=== PATIENT | female | born 1955 | race Caucasian/White ===

== ENCOUNTER → 2018-10-04 | Outpatient (CLI) | payer MEDICARE ==
[2018-10-04 10:57] VITALS: BP 155/71; PULSE 67; RESP 18; TEMP 98.1; BMI 22.3
--- NOTE | 2018-10-04 11:37 | P.HPOB ---
History of Present Illness H&P Date: 10/04/18 Chief Complaint: The patient is here for her routine gynecologic exam and mammogram. This is a 63-year-old with an LMP of 2006. The patient is without gynecologic complaints and denies any postmenopausal bleeding. Review of Systems Weight has been stable. She denies respiratory, cardiac and G.I. problems. She denies maltreatment or problems with falling. : she denies any significant problems with urinary leakage. Past Medical History Past Medical History: No Reported History Additional Past Medical History / Comment(s): History of Mnire's disease. Minimally elevated BUN. PAST EXPLOSIVE EXPERT HISTORY: She has no history of STDs. History of Any Multi-Drug Resistant Organisms: None Reported Past Surgical History: Appendectomy, Breast Surgery (Right breast biopsy 2009), Orthopedic Surgery (Knee surgery) Additional Past Surgical History / Comment(s): Colonoscopy 2008(2nd). Past Anesthesia/Blood Transfusion Reactions: No Reported Reaction Past Psychological History: No Psychological Hx Reported Smoking Status: Never smoker Past Alcohol Use History: Rare (One per year) Past Drug Use History: None Reported Additional History: She is . And has had a long-term boyfriend since about 2001. She is retired but teaches a water aerobics regularly. - Past Family History Mother Family Medical History: Cancer (Lung cancer) Father Family Medical History: Cancer (Melanoma) Sister(s) Family Medical History: Cancer (Breast cancer) Brother(s) Family Medical History: Cancer (Lymphoma) Medications and Allergies Home Medications Medication Instructions Recorded Confirmed Type No Known Home Medications 10/04/18 10/04/18 History Allergies Allergy/AdvReac Type Severity Reaction Status Date / Time No Known Allergies Allergy Verified 10/04/18 10:59 Exam Vital Signs Temp Pulse Resp BP Pulse Ox 10/04/18 10:46 98.1 F 67 18 155/71 98 Intake and Output 10/03/18 10/04/18 10/04/18 22:59 06:59 14:59 Other: Weight 53.524 kg Height 5'1", weight 118 pounds, BMI 22.3. Repeat blood pressure was 132/68. This is a well-developed well-nourished white female who is alert and oriented times 3 in no acute distress. HEENT: Within normal limits. NECK: Supple without mass or thyromegaly. CHEST AND LUNGS: Clear to auscultation. HEART: Regular rate and rhythm. BREASTS: Are without mass or discharge. There is a slight dimpled area with a scar consistent with the previous breast biopsy in the right breast at the 7 o' clock position. AXILLARY EXAM: Negative for adenopathy. BACK: Negative for CVA tenderness. ABDOMEN: Soft, nontender, without palpable masses. PELVIC EXAM: Normal external genitalia with mild to moderate atrophy. Cervix and vagina appear normal some mild to moderate atrophy. There is no unusual discharge. There is no evidence of prolapse. The uterus is midposition, nongravid size and nontender. There are no palpable adnexal masses or tenderness. RECTAL EXAM: rectovaginal exam is negative for mass or tenderness and is negative for occult blood. EXTREMITIES: Nontender. IMPRESSION: 1. 63-year-old menopausal female with normal gynecologic exam. 2. Elevated blood pressure on initial check with improvement upon repeating. 3. History of elevated BUN. PLAN: 1. Pap smear was deferred since she had a normal one last year. We will plan on discontinuing Pap smears since she is not had any problems with Pap smears and we have documented adequate screening with 3 or more negative Pap smears over the last 10 years. 2. Self breast awareness was discussed with the patient. 3. Screening mammogram will be done today. 4. Her blood pressure elevation was discussed. She will do regular blood pressure checks on her own and follow-up with Dr. Summers for blood pressure elevations. 5. I have asked the patient to follow-up with Dr. Summers regarding her elevated BUN which was 24 last year. She states she will do this. 6. She is due for a screening colonoscopy. She states she will discuss this with Dr. Summers for a referral. 7. She did receive a flu shot this fall. 8.Osteoporosis prevention was discussed. I have stressed the importance of adequate calcium, vitamin D and regular exercise. Recommended amounts of calcium and vitamin D were also discussed. She had a normal bone density test on 06/28/14. We will plan on repeating this next year. 9. She will return in one year.
--- NOTE | 2018-10-11 15:02 | MM ---
Reason for exam: screening (asymptomatic). Last mammogram was performed 1 year and 2 months ago. History: Patient is postmenopausal and has history of high-risk lesion on a previous biopsy at age 54. Family history of breast cancer in aunt. Benign right breast needle localzation of the right breast, November 22, 2009. High risk right mammotome panel of the right breast, October 30, 2009. High risk right mammotome panel of the right breast, October 30, 2009. Benign stereotactic core biopsy of the left breast, June 08, 2003. 2 core biopsies of the left breast. MG 3D Screening Mammo W/Cad Bilateral CC and MLO view(s) were taken. Prior study comparison: July 27, 2017, bilateral MG 3d screening mammo w/cad. July 25, 2015, left breast MG 3d work up w/cad LT. The breast tissue is heterogeneously dense. This may lower the sensitivity of mammography. There are benign-appearing left breast calcifications. Bilateral post biopsy changes. No suspicious abnormality. No significant changes when compared with prior studies. ASSESSMENT: Benign, BI-RAD 2 RECOMMENDATION: Routine screening mammogram of both breasts in 1 year.
== END ==
LOC: WWCWWP 10:36
PROVIDERS: ATTEND Obstetrics & Gynecology
DX: Z12.31 Encounter for screening mammogram for malignant neoplasm of breast (principal)
CPT/HCPCS: 77063; 77067

== ENCOUNTER 2019-08-07 09:43 | Day surgery (SDC) | payer MEDICARE, OTHER ==
[2019-08-02 12:01] VITALS: BMI 21.4
[~2019-08-07 09:43] MED LIST: LACTATED RINGERS 1,000 ML IV SCH; LIDOCAINE 1% 20 ML VIAL (10MG/ML) FOR IV START INTRADERMA PRN
[2019-08-07 09:57] VITALS: TEMP 97.7
[2019-08-07] MEDS ORDERED: PROPOFOL 10 MG/ML 20 ML VIAL IV ONE (10:35)
--- NOTE | 2019-08-07 11:27 | P.PCN ---
Date of Procedure: 08/07/19 Description of Procedure: BRIEF HISTORY: Patient is a 64-year-old pleasant female scheduled for an elective colonoscopy as a part of screening for malignant neoplasm of the colon. Patient reports last colonoscopy approximately 10 years ago with the surgical service. No change in bowel habits, blood per rectum or abdominal pain. She does report family history of colon cancer in an uncle. PROCEDURE PERFORMED: Colonoscopy with polypectomy. PREOPERATIVE DIAGNOSIS: Screening for malignant neoplasm of the colon, last colonoscopy 10 years ago. ESTIMATED BLOOD LOSS: Minimal. IV sedation per Anesthesia. PROCEDURE: After informed consent was obtained, the patient, was brought into the endoscopy unit. IV sedation was administered by Anesthesia under continuous monitoring. Digital rectal examination was normal. Initially the Olympus CF-190 flexible video colonoscope was then inserted in the rectum, gradually advanced into the cecum without any difficulty. Careful examination was performed as the scope was gradually being withdrawn. Ileocecal valve and the appendiceal orifice were visualized and appeared normal. Prep was excellent. Mucosa of the cecum, ascending colon, transverse colon, descending colon, sigmoid colon, and rectum appeared normal. 2 sessile polyps removed from the transverse colon measuring 3 mm and 1 mm in size with cold forceps. 2 mm sessile sigmoid colon polyp removed with cold forcep polypectomy. 1 mm sessile rectal polyp removed with cold forcep polypectomy. Retroflexion was performed in the rectum and no lesions were seen. The patient tolerated the procedure well. IMPRESSION: 4 diminutive polyps, 2 removed from the transverse colon, one from the sigmoid colon and one from the rectum all with cold forcep polypectomy. RECOMMENDATIONS: Findings of this examination were discussed with the patient and her friend. Okay to resume diet and medications. Anticipate repeat colonoscopy in 5 years pending pathology from polypectomys.
[2019-08-07 11:43] VITALS: BP 130/86; PULSE 54; RESP 18
== END 2019-08-07 12:00 | disposition home or self-care (01) ==
LOC: ORWHC2ENDO 09:43
PROVIDERS: ATTEND Internal Medicine
DX: Z12.11 Encounter for screening for malignant neoplasm of colon (principal); D12.3 Benign neoplasm of transverse colon; D12.5 Benign neoplasm of sigmoid colon; D12.8 Benign neoplasm of rectum; K63.5 Polyp of colon; Z80.0 Family history of malignant neoplasm of digestive organs; H81.09 Meniere's disease, unspecified ear; Z79.1 Long term (current) use of non-steroidal anti-inflammatories (NSAID)
CPT/HCPCS: 88305; 45380; 45385; J2704

== ENCOUNTER → 2019-11-03 | Outpatient (CLI) | payer MEDICARE, OTHER ==
--- NOTE | 2019-11-03 12:59 | BD ---
EXAMINATION TYPE: Axial Bone Density DATE OF EXAM: 11/03/2019 COMPARISON: NONE CLINICAL HISTORY: Height: 5 FT 1 /4 IN Weight: 122 FRAX RISK QUESTIONS: Alcohol (3 or more units per day): NO Family History (Parent hip fracture): NO Glucocorticoids (More than 3mos): NO (Ex: prednisone, prednisolone, methylprednisolone, dexamethasone, and hydrocortisone). History of Fracture in Adulthood: NO Secondary Osteoporosis: 1. Type 1 Diabetes: NO 2. Hyperthyroidism: NO 3. Menopause before 45: NO 4. Malnutrition: NO 5. Chronic liver disease: NO Rheumatoid Arthritis: NO Current Tobacco Use: NO RISK FACTORS HISTORY OF: Active: YES Postmenopausal woman: AGE 53 MEDICATIONS: Additional Medications: NONE Additional History: EXAM MEASUREMENTS: Bone mineral densitometry was performed using the [employer] System. Bone mineral density as measured about the Lumbar spine is: ----- L1-L4(G/cm2): 1.236 T Score Values are as follows: ----- L2: 0.5 ----- L3: 0.9 ----- L4: 0.3 ----- L1-L4: 0.5 Bone mineral density has: DECREASED -1.7 % since study of: 2013 Bone mineral density about the R hip (g/cm2): 1.045 Bone mineral density about the L hip (g/cm2): 1.078 T Score values are as follows: -----R Neck: 0.0 -----L Neck: 0.3 -----R Total: 0.1 -----L Total: 1.0 Bone mineral density has: DECREASED -3.9 % since study of: 2013 IMPRESSION: Normal (Values between +1 and -1 indicate normal bone mass). Consider repeating this study in 5 year s or sooner if there is some new clinical indication. NOTE: T-SCORE=SD OF THE YOUNG ADULT MEAN.
--- NOTE | 2019-11-06 09:21 | MM ---
Reason for exam: screening (asymptomatic). Last mammogram was performed 1 year and 1 month ago. History: Patient is postmenopausal and has history of high-risk lesion on a previous biopsy at age 54. Family history of breast cancer in sister, breast cancer in maternal aunt, and breast cancer in paternal aunt. Benign right breast needle localzation of the right breast, November 22, 2009. High risk right mammotome panel of the right breast, October 30, 2009. High risk right mammotome panel of the right breast, October 30, 2009. Benign stereotactic core biopsy of the left breast, June 08, 2003. 2 core biopsies of the left breast. Physical Findings: A clinical breast exam by your physician is recommended on an annual basis and results should be correlated with mammographic findings. MG 3D Screening Mammo W/Cad Bilateral CC and MLO view(s) were taken. Prior study comparison: October 04, 2018, bilateral MG 3d screening mammo w/cad. July 27, 2017, bilateral MG 3d screening mammo w/cad. The breast tissue is heterogeneously dense. This may lower the sensitivity of mammography. Benign appearing calcifications in the left breast. No suspicious abnormality. Bilateral biopsy markers. No significant changes when compared with prior studies. ASSESSMENT: Benign, BI-RAD 2 RECOMMENDATION: Routine screening mammogram of both breasts in 1 year.
== END | disposition home or self-care (01) ==
LOC: RADMAMWWP 08:21
PROVIDERS: ATTEND Family Medicine
DX: Z12.31 Encounter for screening mammogram for malignant neoplasm of breast (principal); M89.9 Disorder of bone, unspecified
CPT/HCPCS: 77063; 77067; 77080

== ENCOUNTER → 2021-11-18 | Outpatient (CLI) | payer MEDICARE, OTHER ==
--- NOTE | 2021-11-20 11:06 | MM ---
Reason for exam: screening (asymptomatic). Last mammogram was performed 2 years ago. History: Patient is postmenopausal and has history of high-risk lesion on a previous biopsy at age 54. Family history of breast cancer in sister, breast cancer in maternal aunt, and breast cancer in paternal aunt. Benign right breast needle localzation of the right breast, November 22, 2009. High risk right mammotome panel of the right breast, October 30, 2009. High risk right mammotome panel of the right breast, October 30, 2009. Benign stereotactic core biopsy of the left breast, June 08, 2003. 2 core biopsies of the left breast. Physical Findings: A clinical breast exam by your physician is recommended on an annual basis and results should be correlated with mammographic findings. MG 3D Screening Mammo W/Cad Bilateral CC and MLO view(s) were taken. Prior study comparison: November 03, 2019, bilateral MG 3d screening mammo w/cad. October 04, 2018, bilateral MG 3d screening mammo w/cad. The breast tissue is heterogeneously dense. This may lower the sensitivity of mammography. Previous mammotome biopsy in the right and left breast. No significant changes when compared with prior studies. ASSESSMENT: Benign, BI-RAD 2 RECOMMENDATION: Routine screening mammogram of both breasts in 1 year.
== END | disposition home or self-care (01) ==
LOC: RADMAMWWP 14:08
PROVIDERS: ATTEND Family Medicine
DX: Z12.31 Encounter for screening mammogram for malignant neoplasm of breast (principal); Z80.3 Family history of malignant neoplasm of breast; Z78.0 Asymptomatic menopausal state
CPT/HCPCS: 77063; 77067

== ENCOUNTER → 2024-10-13 | Outpatient (CLI) | payer MEDICARE, OTHER ==
--- NOTE | 2024-10-14 19:25 | BD ---
EXAMINATION TYPE: Axial Bone Density DATE OF EXAM: 10/13/2024 CLINICAL HISTORY: 69 years old Female. ICD-10 CODE: Z78.0 ASYMPT RENEA , Additional History: Height: 61.5 Weight: 118.9 FRAX RISK QUESTIONS: Alcohol (3 or more units per day): no Family History (Parent hip fracture): no Glucocorticoids (More than 3mos): no (Ex: prednisone, prednisolone, methylprednisolone, dexamethasone, and hydrocortisone). History of Fracture in Adulthood: yes Secondary Osteoporosis: 1. Type 1 Diabetes: no 2. Hyperthyroidism: no 3. Menopause before 45: no 4. Malnutrition: no 5. Chronic liver disease: no Rheumatoid Arthritis: no Current Tobacco Use: no RISK FACTORS HISTORY OF: Surgery to Spine/Hip(right/left)/Wrist (right/left): no EXAM MEASUREMENTS: Bone mineral densitometry was performed using the [employer] System. Bone mineral density as measured about the Lumbar spine is: ----- L1-L4(G/cm2): 1.205 T Score Values are as follows: ----- L1: -0.3 ----- L2: 0.2 ----- L3: 0.4 ----- L4: 0.3 ----- L1-L4: 0.2 Z Score Values are as follows: ----- L1: 1.7 ----- L2: 2.2 ----- L3: 2.5 ----- L4: 2.4 ----- L1-L4: 2.3 Bone mineral density has: decreased -2.5 % since study of: 11.03.2019 Bone mineral density about the R hip (g/cm2): 0.988 Bone mineral density about the L hip (g/cm2): 1.121 T Score values are as follows: -----R Neck: -0.2 -----L Neck: 0.3 -----R Total: -0.2 -----L Total: 0.9 Z Score values are as follows: -----R Neck: 1.8 -----L Neck: 2.2 -----R Total: 1.6 -----L Total: 2.7 Bone mineral density has: decreased -1.7 % since study of: 2. FRAX%s: The graph provided illustrates a 11.1 % chance for a major osteoporotic fx and a 0.7% chance for the hips probability for fx in 10 years time. IMPRESSION: Normal (Values between +1 and -1 indicate normal bone mass). Consider repeating this study in 5 year s or sooner if there is some new clinical indication. NOTE: T-SCORE=SD OF THE YOUNG ADULT MEAN. [facility], , 10/14/2024 7:23 PM
--- NOTE | 2024-10-16 07:58 | MM ---
Reason for Exam: Screening (asymptomatic). Last mammogram was performed 2 year(s) and 11 month(s) ago. Patient History: Menarche at age 9. First Full-Term at age 19. Postmenopausal. Core Biopsy on the Left side. Core Biopsy on the Left side. 11/22/2009, Benign Excisional Biopsy on the right side. 10/30/2009, High risk Core Biopsy on the right side. 10/30/2009, High risk Core Biopsy on the right side. 06/08/2003, Benign Stereotactic Core Biopsy on the left side. Paternal aunt had breast cancer, age 65. Maternal aunt had breast cancer, age 65. Sister had breast cancer, age 45. Risk Values: Rayne 5 year model risk: 5.5%. NCI Lifetime model risk: 14.5%. Prior Study Comparison: 10/04/2018 Bilateral Screening Mammogram, [facility]. 11/03/2019 Bilateral Screening Mammogram, [facility]. 11/18/2021 Bilateral Screening Mammogram, [facility]. Tissue Density: The breasts are heterogeneously dense, which may obscure small masses. Findings: Analyzed By CAD. Areas of asymmetric density are unchanged. A microclip on each side from prior biopsies. There is no suspicious group of microcalcifications or new suspicious mass in either breast. Overall Assessment: Benign, BI-RAD 2 Management: Screening Mammogram of both breasts in 1 year. See note below in regards to patient's increased 5 year Rayne score. Patient should continue monthly self-breast exams. A clinical breast exam by your physician is recommended on an annual basis. This exam should not preclude additional follow-up of suspicious palpable abnormalities. Note on Rayne scores and lifetime risk: 1. A Rayne score greater than 3% is considered moderate risk. If this is the case, consider specialist referral to assess eligibility for a risk reducing agent. 2. If overall lifetime risk for the development of breast cancer is 20% or higher, the patient may qualify for future screening with alternating mammogram and breast MRI. [facility], , 10/16/2024 7:54 AM. Electronically signed and approved by: Tanya Ochoa M.D. Radiologist
== END | disposition home or self-care (01) ==
LOC: RADBDWWP 15:45
PROVIDERS: ATTEND Family Medicine
DX: Z12.31 Encounter for screening mammogram for malignant neoplasm of breast (principal); R92.333 Mammographic heterogeneous density, bilateral breasts; Z78.0 Asymptomatic menopausal state; Z80.3 Family history of malignant neoplasm of breast
CPT/HCPCS: 77063; 77067; 77080

== ENCOUNTER → 2025-01-19 | Day surgery (SDC) | payer MEDICARE, OTHER ==
[2025-01-17 10:45] VITALS: BMI 21.1
[~2025-01-19] MED LIST changes: -LACTATED RINGERS 1,000 ML IV SCH; -LIDOCAINE 1% 20 ML VIAL (10MG/ML) FOR IV START INTRADERMA PRN; +PROPOFOL 10 MG/ML 20 ML VIAL IV ONE
[2025-01-19 13:03] VITALS: TEMP 98.4
[2025-01-19] MEDS: LIDOCAINE 1% (10MG/ML) FOR IV START INTRADERMA STA (13:03)
[2025-01-19] MEDS: LACTATED RINGERS 1,000 ML IV SCH (13:03)
[2025-01-19] MEDS: IV FLUID CONTINUATION 1,000 ML IV ONE ×2 (13:04→13:33)
[2025-01-19] MEDS: ONDANSETRON 4 MG/2 ML VIAL IVP STA (13:12)
--- NOTE | 2025-01-19 14:03 | P.PCN ---
Date of Procedure: 01/19/25 Procedure(s) Performed: BRIEF HISTORY: Patient is a 69-year-old pleasant white female scheduled for an elective colonoscopy as a part of screening for by history of colon polyps. His last colonoscopy was 5 years ago and was noted to have a tubular adenoma. PROCEDURE PERFORMED: Colonoscopy with snare polypectomy. PREOPERATIVE DIAGNOSIS: Screening for history of colon polyps. IV sedation per Anesthesia. PROCEDURE: After informed consent was obtained, the patient, was brought into the endoscopy unit. IV sedation was administered by Anesthesia under continuous monitoring. Digital rectal examination was normal. Initially the Olympus CF-160 flexible video colonoscope was then inserted in the rectum, gradually advanced into the cecum without any difficulty. Careful examination was performed as the scope was gradually being withdrawn. Ileocecal valve and the appendiceal orifice were visualized and appeared normal. Prep was excellent. Mucosa of the cecum, ascending colon, transverse colon, descending colon, appeared normal. The sigmoid colon there is a 6 mm polyp removed by cold snare polypectomy. In the rectosigmoid colon there was a 7 mm polyp removed by cold snare polypectomy. Rest of the sigmoid colon, and rectum appeared normal. Retroflexion was performed in the rectum and no lesions were seen. The patient tolerated the procedure well. IMPRESSION: 6 mm sigmoid colon polyp status post snare polypectomy 7 mm rectosigmoid polyp status post. RECOMMENDATIONS: Findings of this examination were discussed with the patient as well as her family. She was advised to follow-up with the biopsy results. If the biopsy reveals adenoma she can have repeat colonoscopy in 5 years..
[2025-01-19 14:13] VITALS: PULSE 60
[2025-01-19 14:29] VITALS: BP 126/54; RESP 16
== END ==
LOC: ORWHC2ENDO 12:37
PROVIDERS: ATTEND Internal Medicine Gastroenterology
DX: Z12.11 Encounter for screening for malignant neoplasm of colon (principal); D12.5 Benign neoplasm of sigmoid colon; F32.A Depression, unspecified; Z79.899 Other long term (current) drug therapy; Z86.0101 Personal history of adenomatous and serrated colon polyps
CPT/HCPCS: 45385; 88305; J2405; J2704